=== PATIENT | male | born 1970 | race Caucasian/White ===

== ENCOUNTER 2023-02-11 16:53 | Emergency (ER) | payer BC ==
[~2023-02-11] VITALS: Ht 177.8 cm; Wt 80.0 kg
[2023-02-11 17:43] LABS: BASOPHILS % (AUTO) 0.3 % (0-1); EOSINOPHILS # (AUTO) 0.1 X10'3 (0-0.9); EOSINOPHILS % (AUTO) 1.2 % (0-6); HEMATOCRIT 43.3 % (42.0-52.0); HEMOGLOBIN 14.7 g/dl (14.0-17.9); LYMPHOCYTES # (AUTO) 1.7 X10'3 (1.1-4.8); LYMPHOCYTES % (AUTO) 22.9 % (21-51); MEAN CORPUSCULAR HEMOGLOBIN 32.3 PG (27.0-31.0); MEAN CORPUSCULAR HGB CONC 33.8 g/dL (33.0-36.5); MEAN CORPUSCULAR VOLUME 95.3 FL (78-98); MEAN PLATELET VOLUME 7.3 FL (7.4-10.4); MONOCYTES # (AUTO) 0.5 X10'3 (0-0.9); MONOCYTES % (AUTO) 6.6 % (2-12); NEUTROPHILS # (AUTO) 5.1 X10'3 (1.8-7.7); PLATELET COUNT 337 X10'3 (140-440); RED BLOOD COUNT 4.54 X10'6 (4.70-6.10); RED CELL DISTRIBUTION WIDTH 12.2 % (11.5-14.5); WHITE BLOOD COUNT 7.3 X10'3 (4.5-11.0)
[2023-02-11 17:57] LABS: ALANINE AMINOTRANSFERASE 40 U/L (12-78); ALBUMIN 4.3 G/DL (3.4-5.0); ALBUMIN/GLOBULIN RATIO 1.5 (1.1-1.5); ALKALINE PHOSPHATASE 86 IU/L (46-116); ANION GAP 12 (8-16); ASPARTATE AMINO TRANSFERASE 33 U/L (10-37); BILIRUBIN,TOTAL 0.5 MG/DL (0.1-1.0); BLOOD UREA NITROGEN 16 MG/DL (7-18); BUN/CREATININE RATIO 15.1 (10.0-20.0); CALCIUM 8.8 MG/DL (8.5-10.1); CHLORIDE 103 MMOL/L (99-107); CREATININE 1.06 MG/DL (0.60-1.10); GLUCOSE 118 MG/DL (70-104); POTASSIUM 3.4 MMOL/L (3.5-5.1); SODIUM 140 MMOL/L (135-145); TOTAL CARBON DIOXIDE 25.3 MMOL/L (24-32); TOTAL PROTEIN 7.1 G/DL (6.4-8.2); eGFR 74 ML/MIN
--- NOTE | 2023-02-11 18:37 | NUR ---
Refused to have his nose swabbed for covid. States he doesn't know what is on the swab.
--- NOTE | 2023-02-11 19:29 | NUR ---
he has a gas mask on
--- NOTE | 2023-02-11 20:49 | NUR ---
The patient moved to bed 22 in the ER overflow. He is loud and his speech is fast and pressured. He is easily distracted. He denies that he is hearing voices. He does admit that he has only been sleeping 3 hours per day and it is very broken. He is refusing any medications. His mood is elavated. He has a hx of bipolar. He is here at his family's assistance. He is wearing a gas mask but agreed to have the strings removed.
--- NOTE | 2023-02-11 21:45 | NUR ---
The patient is awake but accepting redirection. He is refusing medications.
--- NOTE | 2023-02-11 22:30 | NUR ---
The patient is resting on his bed.
--- NOTE | 2023-02-11 23:29 | NUR ---
The patient screaming out and appeared to be having a dream. He continues to be cooperative. He is going to try and give a urine specimen
[2023-02-11 23:48] LABS: CLARITY,URINE CLEAR (Clear); COLOR,URINE YELLOW (Yellow); GLUCOSE, URINE NEGATIVE (Neg); KETONES,URINE 15 mg/dl (Neg); LEUKOCYTE ESTERASE ,URINE NEGATIVE (Neg); NITRITES, URINE NEGATIVE (Neg); OCCULT BLOOD,URINE NEGATIVE (Neg); PH,URINE 5.5 (4.8-8.0); PROTEIN,URINE NEGATIVE (Neg); UROBILINOGEN,URINE 0.2 E.U/dL (0.2-1.0)
[2023-02-11 23:52] LABS: UA COLLECTION TYPE VOIDED
[2023-02-12 00:05] LABS: URINE AMPHETAMINE SCREEN NEGATIVE (Neg); URINE BARBITUATE SCREEN NEGATIVE (Neg); URINE BENZODIAZEPINES SCREEN NEGATIVE (Neg); URINE CANNABINOID SCREEN NEGATIVE (Neg); URINE COCAINE SCREEN NEGATIVE (Neg); URINE METHADONE SCREEN NEGATIVE (Neg); URINE OPIATE SCREEN NEGATIVE (Neg); URINE PHENCYCLIDINE SCREEN NEGATIVE (Neg)
--- NOTE | 2023-02-12 00:52 | NUR ---
PACKET SENT TO [facility]
--- NOTE | 2023-02-12 01:08 | NUR ---
The patient is resting on his bed but awake
[2023-02-12] MEDS ORDERED: NO HOME MEDS (01:27)
--- NOTE | 2023-02-12 02:57 | NUR ---
The patient is currently sleeping but is frequently awake.
[2023-02-12 05:15] VITALS: BP 114/84
--- NOTE | 2023-02-12 06:07 | NUR ---
The patient slept very little during the night. He presents as manic
--- NOTE | 2023-02-12 06:51 | NUR ---
Patient is up with a mask/respirator. Patient acting bizarre. Continue to monitor.
--- NOTE | 2023-02-12 08:11 | NUR ---
Patient eating breakfast and writing on paper. No distress observed. Continue to monitor.
--- NOTE | 2023-02-12 08:59 | NUR ---
Patient pacing in front of nurses station. Patient has respirator mask on. Continue to monitor.
[2023-02-12] MEDS ORDERED: potassium Cl 20 mEq SR tablet PO STA (09:13)
--- NOTE | 2023-02-12 10:31 | NUR ---
Patient discussing the benefits of K+ with RN. Continue to monitor.
--- NOTE | 2023-02-12 11:05 | NUR ---
Allie ROCHE, evaluating patient. Patient is talking non-stop. Continue to monitor.
== END 2023-02-12 12:46 | disposition home or self-care (01) ==
LOC: ER 16:54
DX: F31.9 Bipolar disorder, unspecified (principal); Z20.822 Contact with and (suspected) exposure to COVID-19; Z56.0 Unemployment, unspecified
CPT/HCPCS: 36415; 80053; 80305; 80320; 81003; 84443; 85025; 87811; 99285

== ENCOUNTER 2023-03-03 23:57 | Emergency (ER) | payer BC ==
[~2023-03-03] VITALS: Ht 172.7 cm; Wt 64.5 kg
[~2023-03-03 23:57] MED LIST: NO HOME MEDS
[2023-03-04 00:14] VITALS: BP 115/78; PULSE 95; RESP 14; O2SAT 98
== END 2023-03-04 05:47 | disposition left against medical advice (07) ==
LOC: ER 23:57
DX: R21 Rash and other nonspecific skin eruption (principal); Z53.21 Procedure and treatment not carried out due to patient leaving prior to being seen by health care provider
CPT/HCPCS: 99281; 99283